=== PATIENT | male | born 1965 | race Caucasian/White ===

== ENCOUNTER 2021-07-23 13:13 | Outpatient (REF) | payer MEDICAID, SELFPAY ==
--- NOTE | 2021-07-23 10:48 | TONG_PTH ---
PATIENT: Rene Rain LOC: [facility] U#:[id number] AGE/SX: 55/M ROOM: RE07/23/[address]: ZULLY Dennis : 1965 BED: DIS: 07/23/2021 SPEC #: [id number] RECD: 07/26/21 10:21 STATUS: ISA REQ #: [id number] COCO: 07/23/21 10:[address]: Baudilio Gomez DEPT: Surgical Specimen RECD BY: Karla Richard ENTERED: 07/26/21 10:24 SP TYPE: SILVANA GUTIÉRREZ DR: Marguerite Handley Tissues: 1 - TONGUE BIOPSY Procedures: GROSS AND MICRO LEVEL 4 Comments: [id number]
== END 2021-07-23 13:14 | disposition home or self-care (01) ==
LOC: LBN 13:13
PROVIDERS: PCP Registered Nurse; Visit Provider Physician Assistant
DX: D10.1 Benign neoplasm of tongue (principal)
CPT/HCPCS: 88305